=== PATIENT | female | born 1990 | race Caucasian/White ===

== ENCOUNTER 2021-09-06 17:56 | Outpatient (CLI) | payer BC | END 2021-09-06 19:45 | disposition home or self-care (01) | LOC: GENOP 17:56 | DX: O47.1 False labor at or after 37 completed weeks of gestation (principal); O99.891 Other specified diseases and conditions complicating pregnancy; N89.8 Other specified noninflammatory disorders of vagina; O24.913 Unspecified diabetes mellitus in pregnancy, third trimester; O99.283 Endocrine, nutritional and metabolic diseases complicating pregnancy, third trimester; E03.9 Hypothyroidism, unspecified; E28.2 Polycystic ovarian syndrome; Z3A.38 38 weeks gestation of pregnancy | CPT/HCPCS: 59025; 81001; 83518 ==

== ENCOUNTER 2021-09-09 16:48 | Inpatient (IN) | payer BC ==
[~2021-09-09] VITALS: Ht 175.3 cm; Wt 103.0 kg
[2021-09-09] MEDS ORDERED: LANTUS100 UNIT/1 SC (18:02)
[2021-09-09 18:21] LABS: HEMOGLOBIN 10.3 gm/dl (12.3-15.3); RED BLOOD COUNT 3.8 M/UL (4.00-5.10); WHITE BLOOD COUNT 12.3 K/UL (4.5-11.0)
[2021-09-13] MEDS ORDERED: IBUPROFEN800 MG PO (08:03)
[2021-09-13] MEDS ORDERED: HEMOCYTE324 MG PO (08:03)
[2021-09-13] MEDS ORDERED: PERCOCET 5/325 T1 EA PO (08:03)
[2021-09-13] MEDS ORDERED: DULCOLAX STOOL100 MG PO (08:03)
== END 2021-09-13 14:01 | disposition home or self-care (01) | DRG 788 ==
LOC: GENOP 16:48 → OB 17:06
PROVIDERS: Obstetrics & Gynecology; ADMIT Obstetrics & Gynecology
PROC: 10H07YZ Insertion of Other Device into Products of Conception, Via Natural or Artificial Opening (ICD-10-PCS; 2021-09-11)
PROC: 10D00Z1 Extraction of Products of Conception, Low, Open Approach (ICD-10-PCS; principal; 2021-09-11 21:00)
DX: O24.424 Gestational diabetes mellitus in childbirth, insulin controlled (principal); E28.2 Polycystic ovarian syndrome; O99.892 Other specified diseases and conditions complicating childbirth; O62.1 Secondary uterine inertia; O65.9 Obstructed labor due to maternal pelvic abnormality, unspecified; O99.284 Endocrine, nutritional and metabolic diseases complicating childbirth; E03.9 Hypothyroidism, unspecified; M35.9 Systemic involvement of connective tissue, unspecified; Z37.0 Single live birth; Z90.49 Acquired absence of other specified parts of digestive tract; Z90.89 Acquired absence of other organs; Z3A.38 38 weeks gestation of pregnancy; O69.81X0 Labor and delivery complicated by cord around neck, without compression, not applicable or unspecified
CPT/HCPCS: 81001; 82800; 82947; 85014; 85018; 85025; 94760; C9113; J0690; J1200; J1885; J2274; J2370; J2405; J2550; J2590; J2795; J7030; J7120

== ENCOUNTER 2021-09-18 16:58 | Observation (INO) | payer BC ==
[~2021-09-18 16:58] MED LIST: DULCOLAX STOOL100 MG PO; HEMOCYTE324 MG PO; IBUPROFEN800 MG PO; LANTUS100 UNIT/1 SC; PERCOCET 5/325 T1 EA PO
[2021-09-18 17:50] LABS: HEMOGLOBIN 10.3 gm/dl (12.3-15.3); RED BLOOD COUNT 3.74 M/UL (4.00-5.10)
[2021-09-18 18:14] LABS: BUN/CREATININE RATIO 15 (0-10)
== END 2021-09-19 12:59 | disposition home or self-care (01) ==
LOC: GENOP 16:58 → OB 17:20
PROVIDERS: ADMIT Obstetrics & Gynecology
DX: O14.95 Unspecified pre-eclampsia, complicating the puerperium (principal); M54.9 Dorsalgia, unspecified; R51.9 Headache, unspecified; H53.8 Other visual disturbances; Z20.822 Contact with and (suspected) exposure to COVID-19; Z79.1 Long term (current) use of non-steroidal anti-inflammatories (NSAID); Z79.4 Long term (current) use of insulin; Z79.891 Long term (current) use of opiate analgesic; Z86.32 Personal history of gestational diabetes; Z88.5 Allergy status to narcotic agent; Z90.49 Acquired absence of other specified parts of digestive tract
CPT/HCPCS: 36415; 80053; 83615; 83735; 84550; 85025; G0378; J3475; J7120; U0002